=== PATIENT | female | born 1995 | race Hispanic/Latino ===

== ENCOUNTER 2018-09-15 23:41 | Emergency (ER) | payer SELFPAY ==
[2018-09-16 00:52] LABS: Absolute Lymphocytes (CBC) 2.8 K/uL (0.7-4.9); Absolute Monocytes 0.5 K/uL (0.1-1.3); Absolute Neutrophil 4.8 K/uL (1.8-8.0); Basophils % 0.3 % (0-1.3); Eosinophils % 1.1 % (0-4.4); MPV 9.5 fL (7.6-11.3); Monocytes % 5.9 % (3.3-12.3); RBC Red Blood Cell Count 4.24 M/uL (3.86-4.86)
[2018-09-16 00:58] LABS: ALT/SGPT 25 U/L (12-78); AST/SGOT 14 U/L (15-37); Albumin 3.6 g/dL (3.4-5.0); Alkaline Phosphatase 53 U/L (45-117); BUN Blood Urea Nitrogen 8 mg/dL (7-18); Bicarbonate 25 mmol/L (21-32); Bilirubin Direct < 0.1 mg/dL (0-0.2); Bilirubin Total 0.2 mg/dL (0.2-1.0); Glucose Level 102 mg/dL (74-106); Lipase 174 U/L (73-393); Potassium 3.3 mmol/L (3.5-5.1); Protein, Total 7.6 g/dL (6.4-8.2); Sodium Level 142 mmol/L (136-145)
[2018-09-16 01:02] LABS: Urine Blood NEGATIVE (NEG); Urine Glucose NEGATIVE (NEG); Urine Protein NEGATIVE (NEG); Urine pH 5.5 (5.0-7.0)
--- NOTE | 2018-09-16 02:49 | EDPHYS ---
Physician Documentation [facility] Name: Leni Camacho Age: 23 yrs Sex: Female : 1995 Arrival Date: 09/15/2018 Time: 23:42 Bed 20 Private MD: ED Physician Campbell Barragan HPI: 09/16 00:05 This 23 yrs old Female presents to ER via Ambulatory with complaints of jmm Abdominal Pain. 00:05 The patient presents with abdominal pain in the epigastric area, in the lower abdomen. jmm Onset: The symptoms/episode began/occurred gradually, 1 day(s) ago. This is a 23 year old female with a history of pcos that presents to the ED with complaints of epigastric pain beginning approx 1 day ago. Denies fever, denies vomiting, denies diarrhea, but complains of nausea. Patient states the pain has moved to her lower abdomen. Denies surgical history. . 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 - Social history:: Smoking status: Patient/guardian denies using tobacco. - Ebola Screening: : No symptoms or risks identified at this time. ROS: 09/16 00:05 Constitutional: Negative for fever, chills, and weight loss, Cardiovascular: Negative jmm for chest pain, palpitations, and edema, Respiratory: Negative for shortness of breath, cough, wheezing, and pleuritic chest pain. Abdomen/GI: Positive for abdominal pain, nausea. All other systems are negative. Exam: 00:05 Constitutional: This is a well developed, well nourished patient who is awake, alert, jmm and in no acute distress. Head/Face: atraumatic. Eyes: EOMI, no conjunctival erythema appreciated ENT: Moist Mucus Membranes Neck: Trachea midline, Supple Chest/axilla: Normal chest wall appearance and motion. Cardiovascular: Regular rate and rhythm. No edema appreciated Respiratory: Normal respirations, no respiratory distress appreciated 00:05 Abdomen/GI: Inspection: abdomen appears normal, Bowel sounds: normal, Palpation: soft, mild abdominal tenderness, in the epigastric area and right lower quadrant. 00:05 Back: ROM is normal. 00:05 Musculoskeletal/extremity: ROM: intact in all extremities. 00:05 Skin: Appearance: Color: normal in color. 00:05 Neuro: Orientation: is normal, Mentation: is normal, Memory: is normal. 00:05 Psych: Behavior/mood is pleasant, cooperative. Vital Signs: 00:01 BP 113 / 74; Pulse 99; Resp 18; Temp 98.1; Pulse Ox 99% ; Weight 63.5 kg; Height 5 ft. ea (152.40 cm); 00:59 BP 107 / 72; Pulse 90; Resp 18; Pulse Ox 99% on R/A; Pain 5/10; ed1 01:59 BP 103 / 64; Pulse 86; Resp 17; Pulse Ox 99% on R/A; Pain 5/10; ed1 03:00 BP 106 / 73; Pulse 82; Resp 19; Pulse Ox 100% on R/A; Pain 2/10; ed1 00:01 Body Mass Index 27.34 (63.50 kg, 152.40 cm) ea MDM: 00:05 Patient medically screened. [facility] 02:44 Data reviewed: vital signs, nurses notes. Counseling: I had a detailed discussion with sarthak the patient and/or guardian regarding: the historical points, exam findings, and any diagnostic results supporting the discharge/admit diagnosis, lab results, radiology results, the need for outpatient follow up, to return to the emergency department if symptoms worsen or persist or if there are any questions or concerns that arise at home. ED course: Patient is alert and non toxic in appearance in the ED. CT imaging consistent with ovarian cyst rupture. Patient states she currently takes clomid. I discussed with the patient the need to follow up with optical manufacturing technician for further evaluation. Patient is also given return precautions. . 09/16 00:06 Order name: Basic Metabolic Panel; Complete Time: 00:59 [facility] 09/16 00:06 Order name: CBC with Diff; Complete Time: 00:59 [facility] 09/16 00:06 Order name: Creatinine for Radiology; Complete Time: 00:59 [facility] 09/16 00:06 Order name: Hepatic Function; Complete Time: 00:59 [facility] 09/16 00:06 Order name: Lipase; Complete Time: 00:59 [facility] 09/16 00:35 Order name: Urine Dipstick--Ancillary (enter results); Complete Time: 01:[address] [facility] 09/16 00:06 Order name: IV Saline Lock; Complete Time: 00:21 [facility] 09/16 00:06 Order name: Labs collected and sent; Complete Time: 00:21 [facility] 09/16 00:06 Order name: Urine Dipstick-Ancillary (obtain specimen); Complete Time: 00:13 [facility] 09/16 00:08 Order name: CT Abd/Pelvis - W/Contrast [facility] 09/16 00:35 Order name: Urine --Ancillary (enter results); Complete Time: 01:[address] [facility] 09/16 00:06 Order name: Urine Test (obtain specimen); Complete Time: 00:13 [facility] Administered Medications: 02:52 Drug: morphine 2 mg Route: IVP; Site: right antecubital; ed1 03:01 Follow up: Response: No adverse reaction; Pain is decreased ed1 02:52 Drug: Zofran 4 mg Route: IVP; Site: right antecubital; ed1 03:01 Follow up: Response: No adverse reaction; Nausea is decreased ed1 02:52 Drug: Ketorolac 30 mg Route: IVP; Site: right antecubital; ed1 03:02 Follow up: Response: No adverse reaction; Pain is decreased ed1 Disposition: 04:05 Co-signature as Attending Physician, Campbell Barragan MD. rn Disposition: 09/16/18 02:49 Discharged to Home. Impression: Ruptured Ovarian Cyst, Epigastric pain. - Condition is Stable. - Discharge Instructions: Ovarian Cyst. - Prescriptions for Tylenol- Codeine #3 300-30 mg Oral Tablet - take 1 tablet by ORAL route every 6 hours As needed; 20 tablet. Pepcid 20 mg Oral Tablet - take 1 tablet by ORAL route every 12 hours for 10 days; 20 tablet. - Medication Reconciliation Form, Thank You Letter, Antibiotic Education, Prescription Opioid Use form. - Follow up: Private Physician; When: 2 - 3 days; Reason: Recheck today's complaints, Continuance of care, Re-evaluation by your physician. - Notes: Please follow up with Gastroenterology for further evaluation of your upper abdominal pain. Please return to the ED if you develop increased pain, fever, shortness of breath, or any other concerning symptoms. Signatures: Dispatcher [employer] EDMS Mark Levi PA PA [facility] Campbell Barragan MD MD rn Riggs, Erika, RN RN ed1 Daily Seaman RN RN ea Corrections: (The following items were deleted from the chart) 02:49 02:49 09/16/2018 02:49 Discharged to Home. Impression: Ruptured Ovarian Cyst. Condition [facility] is Stable. Forms are Medication Reconciliation Form, Thank You Letter, Antibiotic Education, Prescription Opioid Use. Follow up: Private Physician; When: 2 - 3 days; Reason: Recheck today's complaints, Continuance of care, Re-evaluation by your physician. [facility] 03:02 02:49 09/16/2018 02:49 Discharged to Home. Impression: Ruptured Ovarian Cyst; ed1 Epigastric pain. Condition is Stable. Discharge Instructions: Ovarian Cyst. Prescriptions for Tylenol-Codeine #3 300-30 mg Oral Tablet - take 1 tablet by ORAL route every 6 hours As needed; 20 tablet. and Forms are Medication Reconciliation Form, Thank You Letter, Antibiotic Education, Prescription Opioid Use. Follow up: Private Physician; When: 2 - 3 days; Reason: Recheck today's complaints, Continuance of care, Re-evaluation by your physician. [facility]
--- NOTE | 2018-09-16 02:49 | ER ---
Nurse's Notes [facility] Name: Leni Camacho Age: 23 yrs Sex: Female : 1995 Arrival Date: 09/15/2018 Time: 23:42 Bed 20 Private MD: Diagnosis: Ruptured Ovarian Cyst;Epigastric pain Presentation: 09/15 23:55 Presenting complaint: Patient states: Reports epigastric pain that started at around ea four AM yesterday morning, pt reports 2 episodes of diarrhea in the AM and has been feeling nauseous. Transition of care: patient was not received from another setting of care. Onset of symptoms was September 15, 2018. Risk Assessment: Do you want to hurt yourself or someone else? Patient reports no desire to harm self or others. Initial Sepsis Screen: Does the patient meet any 2 criteria? No. Patient's initial sepsis screen is negative. Does the patient have a suspected source of infection? No. Patient's initial sepsis screen is negative. Care prior to arrival: None. 23:55 Method Of Arrival: Ambulatory ea 23:55 Acuity: YON 3 ea Triage Assessment: 09/16 00:00 General: Appears in no apparent distress. Behavior is calm, cooperative, appropriate ea for age. Pain: Complains of pain in epigastric area. Neuro: Level of Consciousness is awake, alert, obeys commands, Oriented to person, place, time, situation. Cardiovascular: Patient's skin is warm and dry. Respiratory: Airway is patent Respiratory effort is even, unlabored, Respiratory pattern is regular, symmetrical. GI: Abdomen is non-distended, Reports nausea. GI: Reports cramping. : Denies burning with urination. Derm: Skin is pink, warm \T\ dry. 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 - Social history:: Smoking status: Patient/guardian denies using tobacco. - Ebola Screening: : No symptoms or risks identified at this time. Screenin:57 Abuse screen: Denies threats or abuse. Nutritional screening: No deficits noted. ea Tuberculosis screening: No symptoms or risk factors identified. Fall Risk None identified. Assessment: 09/16 00:21 General: Appears in no apparent distress. Behavior is calm, cooperative. Pain: ed1 Complains of pain in epigastric area and right upper quadrant Pain does not radiate. Pain currently is 5 out of 10 on a pain scale. Quality of pain is described as aching, Pain began 1 day ago. Is continuous. Neuro: Level of Consciousness is awake, alert, obeys commands, Oriented to person, place, time, situation. Cardiovascular: Denies chest pain, Heart tones S1 S2 present. Respiratory: Airway is patent Respiratory effort is even, unlabored, Respiratory pattern is regular, symmetrical, Breath sounds are clear bilaterally. GI: Abdomen is non-distended, Bowel sounds present X 4 quads. Abd is soft X 4 quads Abdomen is tender to palpation in epigastric area and right upper quadrant Reports diarrhea, nausea, Patient currently denies vomiting. : No signs and/or symptoms were reported regarding the genitourinary system. EENT: No signs and/or symptoms were reported regarding the EENT system. Derm: Skin is intact, is healthy with good turgor, Skin is dry, Skin is normal, Skin temperature is warm. Musculoskeletal: Circulation, motion, and sensation intact. Range of motion: intact in all extremities. 00:59 Reassessment: Patient appears in no apparent distress at this time. No changes from ed1 previously documented assessment. Patient and/or family updated on plan of care and expected duration. Pain level reassessed. Patient is alert, oriented x 3, equal unlabored respirations, skin warm/dry/pink. Patient states symptoms have not improved. 01:59 Reassessment: Patient appears in no apparent distress at this time. No changes from ed1 previously documented assessment. Patient and/or family updated on plan of care and expected duration. Pain level reassessed. Patient is alert, oriented x 3, equal unlabored respirations, skin warm/dry/pink. Patient states symptoms have not improved. 03:00 Reassessment: Patient appears in no apparent distress at this time. Patient and/or ed1 family updated on plan of care and expected duration. Pain level reassessed. Patient is alert, oriented x 3, equal unlabored respirations, skin warm/dry/pink. Patient states feeling better. Patient states symptoms have improved. Vital Signs: 00:01 BP 113 / 74; Pulse 99; Resp 18; Temp 98.1; Pulse Ox 99% ; Weight 63.5 kg; Height 5 ft. ea (152.40 cm); 00:59 BP 107 / 72; Pulse 90; Resp 18; Pulse Ox 99% on R/A; Pain 5/10; ed1 01:59 BP 103 / 64; Pulse 86; Resp 17; Pulse Ox 99% on R/A; Pain 5/10; ed1 03:00 BP 106 / 73; Pulse 82; Resp 19; Pulse Ox 100% on R/A; Pain 2/10; ed1 00:01 Body Mass Index 27.34 (63.50 kg, 152.40 cm) ea ED Course: 09/15 23:42 Patient arrived in ED. am2 23:48 Mark Levi PA is PHCP. [facility] 23:48 Campbell Barragan MD is Attending Physician. [facility] 23:56 Triage completed. ea 23:56 Patient has correct armband on for positive identification. Bed in low position. Call ea light in reach. Side rails up X2. 23:57 Arm band placed on right wrist. Patient placed in an exam room, on a stretcher, on ea pulse oximetry. 09/16 00:10 Maura Godinez, RN is Primary Nurse. ed1 00:21 Initial lab(s) drawn, by fl, sent to lab. Inserted saline lock: 22 gauge in right ed1 antecubital area, using aseptic technique. Blood collected. 00:[address] Scan. ed1 01:54 CT Abd/Pelvis - W/Contrast In Process Unspecified. EDMS 02:20 Resting quietly. Awaiting radiology results. ed1 03:00 No provider procedures requiring assistance completed. IV discontinued, intact, ed1 bleeding controlled, No redness/swelling at site. Pressure dressing applied. Administered Medications: 02:52 Drug: morphine 2 mg Route: IVP; Site: right antecubital; ed1 03:01 Follow up: Response: No adverse reaction; Pain is decreased ed1 02:52 Drug: Zofran 4 mg Route: IVP; Site: right antecubital; ed1 03:01 Follow up: Response: No adverse reaction; Nausea is decreased ed1 02:52 Drug: Ketorolac 30 mg Route: IVP; Site: right antecubital; ed1 03:02 Follow up: Response: No adverse reaction; Pain is decreased ed1 Outcome: 02:49 Discharge ordered by MD. de león 03:00 Discharged to home ambulatory, with significant other. ed1 03:00 Condition: good 03:00 Discharge instructions given to patient, Instructed on discharge instructions, follow up and referral plans. medication usage, Demonstrated understanding of instructions, follow-up care, medications, Prescriptions given X 2. 03:02 Patient left the ED. ed1 Signatures: Dispatcher [employer] EDMS Mark Levi PA PA jmm Riggs, Erika, RN RN ed1 Latasha Arreaga am2 Daily Seaman, RN RN ea
[2018-09-16] MEDS ORDERED: MORPHINE 2 MG/ML SYR ONE (02:59)
[2018-09-16] MEDS ORDERED: ONDANSETRON 4 MG/2 ML VIAL ONE (02:59)
[2018-09-16] MEDS ORDERED: KETOROLAC 30 MG/ML INJ ONE (02:59)
--- NOTE | 2018-09-16 13:17 | RAD REPORT ---
EXAM DESCRIPTION: CT Abdomen and Pelvis With Contrast: CLINICAL HISTORY: Abdominal pain. COMPARISON: None. TECHNIQUE: Contiguous axial sections are obtained through the abdomen and pelvis as per protocol aft er administration of iodinated contrast. Oral contrast was not administered. . Sagittal and coronal r eformations were obtained. Automatic exposure control (AEC), mA and/or kV adjustment by patient size, and/or iterative reconst ructive technique was used, per departmental dose optimization program, during the performance of the CT examination. FINDINGS: The radio division officer view demonstrates no abnormalities. The visualized lung bases demonstrates no abnormalities. The liver is normal in size and demonstrates normal attenuation and enhancement. The spleen, pancre as, adrenal glands appear normal in size and attenuation without any focal abnormalities. The gallbla dder is normal. Kidneys demonstrate no evidence of calculi. Kidneys are normal in size, shape, attenuation and enhanc ement. The aorta, IVC and retroperitoneal structures appear normal . The stomach appearsunremarkable . The small bowel loops appear unremarkable. The appendix is normal . The colon isunremarkable. Moderate amount of free fluid is seen in the pelvis most consistent with a ruptured ovarian cyst. CT examination of the pelvis demonstrates no evidence of mass or adenopathy. The urinary bladder appe ars normal. The uterus is anteverted and normal in size. Slightly distended endometrial cavity is noted in the re gion of the fundus. Presence of a left ovarian follicle measuring 2.1 cm in size is noted. Inguinal regions are unremarkable. Bony structures are unremarkable. IMPRESSION: Presence of free fluid in the pelvis most suggestive of a ruptured ovarian cyst. Distend ed endometrial canal versus endometrial thickening in the region of the fundus. Electronically signed by: Gina Corbin MD 09/16/2018 2:02 AM CDT Due to temporary technical issues with the PACS/Fluency reporting system, reports are being signed by the in house radiologist as a courtesy to ensure prompt reporting. The interpreting radiologist is f ully responsible for the content of the report.
== END 2018-09-16 03:02 | disposition home or self-care (01) ==
LOC: ER 23:41
DX: N83.299 Other ovarian cyst, unspecified side (principal); E28.2 Polycystic ovarian syndrome
CPT/HCPCS: 36415; 74177; 80048; 80076; 81003; 81025; 83690; 85025; 96374; 96375; 99284; J2270; J2405; Q9967

== ENCOUNTER 2019-02-02 14:54 | Emergency (ER) | payer SELFPAY ==
[2019-02-02 16:06] LABS: Urine Blood 1+ (NEG); Urine Glucose NEGATIVE (NEG); Urine Protein 1+ (NEG); Urine Specific Gravity 1.025 (1.005-1.030)
[2019-02-02 16:23] LABS: Urine Bacteria >50 /HPF (<20); Urine Culture Reflex Order NOT NEEDED
[2019-02-02] MEDS ORDERED: NA CHLORIDE 0.9% 1,000 ML ONE (16:26)
[2019-02-02 16:53] LABS: Absolute Lymphocytes (CBC) 1.2 K/uL (0.7-4.9); Basophils % 0.6 % (0-1.3); Hematocrit 37.5 % (36.0-45.0); MPV 9.4 fL (7.6-11.3); RBC Red Blood Cell Count 4.33 M/uL (3.86-4.86)
[2019-02-02] MEDS ORDERED: CEFTRIAXONE/SWI 1gm 1 GM/10 ML SYR ONE (17:09)
[2019-02-02 17:10] LABS: BUN Blood Urea Nitrogen 7 mg/dL (7-18); Bicarbonate 24 mmol/L (21-32); Glucose Level 87 mg/dL (74-106); HCG, Quantitative 712 mIU/mL (1-3); Potassium 3.4 mmol/L (3.5-5.1); Sodium Level 139 mmol/L (136-145)
--- NOTE | 2019-02-02 17:44 | ER ---
Nurse's Notes [facility] Name: Leni Camacho Age: 23 yrs Sex: Female : 1995 Arrival Date: 02/02/2019 Time: 14:59 Bed 13 Private MD: Vaughn Mckeon B Diagnosis: Unspecified ovarian cysts; state;Urinary tract infection, site not specified Presentation: 02/02 15:24 Presenting complaint: Patient states: LMP-12/27/18; i have been getting on and off fever, T max- 100.5; denies couth, reports abd cramps but denies bleeding;. Transition of care: patient was not received from another setting of care. Onset of symptoms was February 02, 2019. Risk Assessment: Do you want to hurt yourself or someone else? Patient reports no desire to harm self or others. Initial Sepsis Screen: Does the patient meet any 2 criteria? No. Patient's initial sepsis screen is negative. Does the patient have a suspected source of infection? No. Patient's initial sepsis screen is negative. Care prior to arrival: None. 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 - Social history:: Smoking status: Patient/guardian denies using tobacco. - Ebola Screening: : No symptoms or risks identified at this time. Screenin:48 Abuse screen: Denies threats or abuse. Denies injuries from another. Nutritional ph screening: No deficits noted. Tuberculosis screening: No symptoms or risk factors identified. Fall Risk None identified. Assessment: 16:47 General: Appears in no apparent distress. comfortable, slender, well groomed, Behavior ph is calm, cooperative, appropriate for age, Reports chills for fever for 1-2 days. Pain: Complains of pain in suprapubic area. Neuro: Level of Consciousness is awake, alert, obeys commands, Oriented to person, place, time, situation. Cardiovascular: Capillary refill < 3 seconds in bilateral fingers Patient's skin is warm and dry. Respiratory: Airway is patent Respiratory effort is even, unlabored, Respiratory pattern is regular, symmetrical. GI: Abdomen is flat, non-distended, Bowel sounds present X 4 quads. Patient currently denies diarrhea, nausea, vomiting. : Reports pain in suprapubic area urinary frequency. Derm: Skin is intact, Skin is pink, warm \T\ dry. Musculoskeletal: Circulation, motion, and sensation intact. Range of motion: intact in all extremities. 18:11 Reassessment: Patient appears in no apparent distress at this time. Patient and/or ph family updated on plan of care and expected duration. Pain level reassessed. Patient is alert, oriented x 3, equal unlabored respirations, skin warm/dry/pink. Pt d/c home w/ SO. Vital Signs: 15:26 BP 115 / 70; Pulse 98; Resp 18; Temp 98.4; Pulse Ox 100% on R/A; Weight 59.87 kg; hj Height 5 ft. 0 in. (152.40 cm); Pain 0/10; 16:49 BP 114 / 79; Pulse 95; Resp 18; Pulse Ox 100% on R/A; ph 17:56 BP 108 / 78; Pulse 94; Resp 18; Temp 98.1; Pulse Ox 99% on R/A; ph 15:26 Body Mass Index 25.78 (59.87 kg, 152.40 cm) ED Course: 14:59 Patient arrived in ED. ag5 15:00 Vaughn Mckeon MD is Private Physician. ag5 15:25 Triage completed. hj 15:26 Arm band placed on left wrist. hj 15:41 So Champagne FNP-C is [facility]. snw 15:42 Campbell Barragan MD is Attending Physician. snw 16:01 Jocelyne Jimenez, MARGY is Primary Nurse. ph 16:48 Patient has correct armband on for positive identification. Bed in low position. Call ph light in reach. Side rails up X 1. Pulse ox on. NIBP on. Door closed. Noise minimized. Warm blanket given. Head of bed elevated. 16:48 No provider procedures requiring assistance completed. Inserted saline lock: 20 gauge ph in right antecubital area, using aseptic technique. 17:43 Vaughn Mckeon MD is Referral Physician. snw 18:11 US Transvaginal Ob In Process Unspecified. EDMS 18:12 IV discontinued, intact, bleeding controlled, No redness/swelling at site. Pressure ph dressing applied. Administered Medications: 16:46 Drug: NS 0.9% 1000 ml Route: IV; Rate: 1 bolus; Site: right antecubital; ph 18:00 Follow up: Response: No adverse reaction; IV Status: Completed infusion; IV Intake: ph 1000ml 17:50 Drug: Rocephin 1 grams Route: IV; Rate: calculated rate; Site: right antecubital; ph 18:00 Follow up: Response: No adverse reaction; IV Status: Completed infusion ph Intake: 18:00 IV: 1000ml; Total: 1000ml. ph Outcome: 17:44 Discharge ordered by . snw 18:11 Discharged to home ambulatory, with significant other. ph 18:11 Condition: good 18:11 Discharge instructions given to patient, Instructed on discharge instructions, follow up and referral plans. medication usage, Demonstrated understanding of instructions, follow-up care, medications, Prescriptions given X 1. 18:12 Patient left the ED. ph Signatures: Dispatcher [employer] EDMS So Champagne, TAPE SEWER-C TAPE SEWER-Csnw Jocelyne Jimenez RN RN Rickey Grimaldo, MARGY RN Silvana Ward ag5 Corrections: (The following items were deleted from the chart) 15:28 15:26 Pulse 98bpm; Resp 18bpm; Pulse Ox 100% RA; Temp 98.4F; 59.87 kg; Height 5 ft. 0 hj in.; BMI: 25.7; Pain 0/10; hj
--- NOTE | 2019-02-02 17:45 | EDPHYS ---
Physician Documentation [facility] [place] Name: Leni Camacho Age: 23 yrs Sex: Female : 1995 Arrival Date: 02/02/2019 Time: 14:59 Bed 13 Private MD: Vaughn Mckeon B ED Physician Campbell Barragan HPI: 02/02 16:49 This 23 yrs old Female presents to ER via Ambulatory with complaints of Fever, snw 5 Weeks Preg. 16:49 The patient reports fever, that was measured at 101 degrees Fahrenheit. Onset: The snw symptoms/episode began/occurred suddenly, 1 day(s) ago, and became persistent. Associated signs and symptoms: Pertinent positives: abd cramping. Severity of symptoms: At their worst the symptoms were mild. The patient has not experienced similar symptoms in the past. saw Dr. Mckeon x 1. 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 - Social history:: Smoking status: Patient/guardian denies using tobacco. - Ebola Screening: : No symptoms or risks identified at this time. ROS: 16:48 Constitutional: Negative for chills and weight loss, + fever up to 101 Eyes: Negative snw for injury, pain, redness, and discharge, ENT: Negative for injury, pain, and discharge, Neck: Negative for injury, pain, and swelling, Cardiovascular: Negative for chest pain, palpitations, and edema, Respiratory: Negative for shortness of breath, cough, wheezing, and pleuritic chest pain, Back: Negative for injury and pain, : Negative for injury, bleeding, discharge, and swelling, MS/Extremity: Negative for injury and deformity, Skin: Negative for injury, rash, and discoloration, Neuro: Negative for headache, weakness, numbness, tingling, and seizure. 16:48 Abdomen/GI: Positive for abdominal cramps, of the suprapubic area and right lower quadrant. Exam: 16:46 Head/Face: Normocephalic, atraumatic. Eyes: Pupils equal round and reactive to light, snw extra-ocular motions intact. Lids and lashes normal. Conjunctiva and sclera are non-icteric and not injected. Cornea within normal limits. Periorbital areas with no swelling, redness, or edema. ENT: Nares patent. No nasal discharge, no septal abnormalities noted. Tympanic membranes are normal and external auditory canals are clear. Oropharynx with no redness, swelling, or masses, exudates, or evidence of obstruction, uvula midline. Mucous membranes moist. Neck: Trachea midline, no thyromegaly or masses palpated, and no cervical lymphadenopathy. Supple, full range of motion without nuchal rigidity, or vertebral point tenderness. No Meningismus. Chest/axilla: Normal chest wall appearance and motion. Nontender with no deformity. No lesions are appreciated. Cardiovascular: Regular rate and rhythm with a normal S1 and S2. No gallops, murmurs, or rubs. Normal PMI, no JVD. No pulse deficits. Respiratory: Lungs have equal breath sounds bilaterally, clear to auscultation and percussion. No rales, rhonchi or wheezes noted. No increased work of breathing, no retractions or nasal flaring. Back: No spinal tenderness. No costovertebral tenderness. Full range of motion. Skin: Warm, dry with normal turgor. Normal color with no rashes, no lesions, and no evidence of cellulitis. MS/ Extremity: Pulses equal, no cyanosis. Neurovascular intact. Full, normal range of motion. Neuro: Awake and alert, GCS 15, oriented to person, place, time, and situation. Cranial nerves II-XII grossly intact. Motor strength 5/5 in all extremities. Sensory grossly intact. Cerebellar exam normal. Normal gait. 16:46 Constitutional: The patient appears alert, awake, pale. 16:46 Abdomen/GI: Inspection: abdomen appears normal, Bowel sounds: normal, Palpation: mild abdominal tenderness, in the right lower quadrant. Vital Signs: 15:26 BP 115 / 70; Pulse 98; Resp 18; Temp 98.4; Pulse Ox 100% on R/A; Weight 59.87 kg; hj Height 5 ft. 0 in. (152.40 cm); Pain 0/10; 16:49 BP 114 / 79; Pulse 95; Resp 18; Pulse Ox 100% on R/A; ph 17:56 BP 108 / 78; Pulse 94; Resp 18; Temp 98.1; Pulse Ox 99% on R/A; ph 15:26 Body Mass Index 25.78 (59.87 kg, 152.40 cm) hj MDM: 15:43 Patient medically screened. zachery 16:50 Data reviewed: vital signs, nurses notes. Data interpreted: Pulse oximetry: on room air snw is 100 %. Interpretation: normal. Counseling: I had a detailed discussion with the patient and/or guardian regarding: the historical points, exam findings, and any diagnostic results supporting the discharge/admit diagnosis, lab results. Special discussion: , LMP 12/26/18. 02/02 15:13 Order name: Urine Culture snw 02/02 15:13 Order name: Urine Microscopic Only; Complete Time: 16:27 snw 02/02 16:03 Order name: Urine Dipstick--Ancillary (enter results); Complete Time: 16:13 bd 02/02 16:03 Order name: Urine --Ancillary (enter results); Complete Time: 16:13 bd 02/02 16:14 Order name: Quantitative Hcg; Complete Time: 17:13 snw 02/02 16:14 Order name: Abo/rh Typing; Complete Time: 17:55 snw 02/02 15:13 Order name: Urine Test (obtain specimen); Complete Time: 16:12 snw 02/02 15:13 Order name: Urine Dipstick-Ancillary (obtain specimen); Complete Time: 16:12 snw 02/02 16:14 Order name: Basic Metabolic Panel; Complete Time: 17:13 snw 02/02 16:14 Order name: CBC with Diff; Complete Time: 16:59 snw 02/02 16:14 Order name: IV Saline Lock; Complete Time: 16:46 snw 02/02 16:50 Order name: US Transvaginal Ob snw 02/02 16:14 Order name: Labs collected and sent; Complete Time: 16:46 snw 02/02 16:14 Order name: NPO; Complete Time: 16:46 snw Administered Medications: 16:46 Drug: NS 0.9% 1000 ml Route: IV; Rate: 1 bolus; Site: right antecubital; ph 18:00 Follow up: Response: No adverse reaction; IV Status: Completed infusion; IV Intake: ph 1000ml 17:50 Drug: Rocephin 1 grams Route: IV; Rate: calculated rate; Site: right antecubital; ph 18:00 Follow up: Response: No adverse reaction; IV Status: Completed infusion ph Disposition: 02/03 07:24 Co-signature as Attending Physician, Campbell Barragan MD. rn Disposition: 02/02/19 17:44 Discharged to Home. Impression: Unspecified ovarian cysts, state, Urinary tract infection, site not specified. - Condition is Stable. - Discharge Instructions: Ovarian Cyst, Fbct-ed-[id number], First Trimester of , and Urinary Tract Infection. - Prescriptions for Macrobid 100 mg Oral Capsule - take 1 capsule by ORAL route every 12 hours for 10 days; 20 capsule. - Medication Reconciliation Form, Thank You Letter, Antibiotic Education, Prescription Opioid Use, Family Work Release form. - Follow up: Vaughn Mckeon MD; When: 1 week; Reason: Recheck today's complaints, Continuance of care, Re-evaluation by your physician. Follow up: Emergency Department; When: As needed; Reason: Worsening of condition. Signatures: Dispatcher [employer] EDColton Pedroza MD MD cha Therrien, Shelly, PROCUREMENT BUYER-C PROCUREMENT BUYER-Csnw Campbell Barragan MD MD rn Hall, Patricia, RN RN Rickey Grimaldo RN RN Corrections: (The following items were deleted from the chart) 02/02 18:12 17:44 02/02/2019 17:44 Discharged to Home. Impression: Unspecified ovarian cysts; ph state; Urinary tract infection, site not specified. Condition is Stable. Forms are Medication Reconciliation Form, Thank You Letter, Antibiotic Education, Prescription Opioid Use. Follow up: Vaughn Mckeon; When: 1 week; Reason: Recheck today's complaints, Continuance of care, Re-evaluation by your physician. Follow up: Emergency Department; When: As needed; Reason: Worsening of condition. snw
--- NOTE | 2019-02-02 20:38 | RAD REPORT ---
EXAM DESCRIPTION: US - Transvaginal OB - 02/02/2019 6:08 pm CLINICAL HISTORY: Abdominal cramping, COMPARISON: None. FINDINGS: Approximately 3.2 centimeter complex right ovarian cyst present. This is most likely a hem orrhagic cyst. Ectopic is not suspected no left ovarian abnormality seen. A 12 millimeter thick endometrial stripe is present. No gestational sac or sac remnant identifiable. No mass, polyp, hematoma or other endometrial abnormality. Uterus is normal size. No myometrial mass. IMPRESSION: No intrauterine gestational sac or sac remnant. Endometrial stripe is thickened 12 mm. Complex 3 centimeter right ovarian cyst. Ectopic is not suspected
== END 2019-02-02 18:12 | disposition home or self-care (01) ==
LOC: ER 14:54
DX: O34.81 Maternal care for other abnormalities of pelvic organs, first trimester (principal); N83.201 Unspecified ovarian cyst, right side; O23.41 Unspecified infection of urinary tract in pregnancy, first trimester; O99.281 Endocrine, nutritional and metabolic diseases complicating pregnancy, first trimester; E28.2 Polycystic ovarian syndrome; Z3A.01 Less than 8 weeks gestation of pregnancy
CPT/HCPCS: 36415; 76817; 80048; 81003; 81015; 81025; 84702; 85025; 86900; 86901; 87086; 87088; 96361; 96374; 99284; J0696; J7030

== ENCOUNTER 2019-09-28 01:46 | Inpatient (IN) | payer SELFPAY ==
[2019-09-28] MEDS ORDERED: CARBOPROST TROME 250 MCG/ML IM PRN (03:25)
[2019-09-28] MEDS ORDERED: BUTORPHANOL 1 MG/ML INJ IV PRN (03:25)
[2019-09-28] MEDS ORDERED: PROMETHAZINE INJ 25 MG/ML AMP IM PRN (03:25)
[2019-09-28] MEDS ORDERED: Ringers Lactate 1,000 ML IV PRN (03:25)
[2019-09-28] MEDS ORDERED: METHYLERGONOVINE 0.2MG/ML AMP IM PRN (03:25)
[2019-09-28] MEDS ORDERED: PENICILLIN 5 MU in NA CHLORIDE 0.9% 100 ML IV ONE (03:30)
[2019-09-28] MEDS ORDERED: OXYTOCIN/LR 20 UNIT/1,000 ML BAG IV SCH ×2 (04:00→18:00)
[2019-09-28] MEDS ORDERED: Ringers Lactate 1,000 ML IV SCH (04:00)
[2019-09-28 05:00] LABS: Urine Appearance CLOUDY; Urine Bilirubin NEGATIVE (NEG); Urine Blood NEGATIVE (NEG); Urine Color YELLOW; Urine Glucose NEGATIVE (NEG); Urine Protein NEGATIVE (NEG); Urine Specific Gravity >=1.030 (1.005-1.030); Urine Urobilinogen 0.2 mg/dL (0.2-1.0)
[2019-09-28] MEDS ORDERED: PENICILLIN 2.5 MU in NA CHLORIDE 0.9% 100 ML IV SCH (05:00)
[2019-09-28 05:05] VITALS: BMI 32.2
[2019-09-28 05:11] LABS: Absolute Lymphocytes (CBC) 1.8 K/uL (0.7-4.9); Basophils % 0.3 % (0-1.3); Hematocrit 31.9 % (36.0-45.0); Lymphocytes % 22.5 % (15.3-44.8); RBC Red Blood Cell Count 3.82 M/uL (3.86-4.86)
[2019-09-28 05:34] LABS: Urine Bacteria 20-50 /HPF (<20); Urine Culture Reflex Order REFLEXED; Urine RBC <5 /HPF (NONE SEEN); Urine Urothelial Cells <5 /HPF (NONE SEEN)
--- NOTE | 2019-09-28 07:52 | PREOPHP ---
Date of Admission: 09/28/2019 Leni Camacho, a 24-year-old, primigravida, 39 weeks by best estimates, could be 39 weeks and 3 or 4 days, but definitely not pass the due date. Rh positive, immune to Rubella. Positive beta s trep screen. Has already received one dose of penicillin. Baby looks excellent today. She is contr acting regularly, but is not uncomfortable at this point. Rupture of membranes, light to medium meco nium, no particulate matter. She is 3.5 cm, 60% to 70% effaced, vertex, -1 station. Anticipate more rapid progress. Discussion about meconium and strep. Anticipate delivery sometime later today. NAYA/MO Voice ID: [id number]
--- NOTE | 2019-09-28 08:29 | RAD REPORT ---
EXAM DESCRIPTION: RAD - Abdomen Single View - 09/28/2019 5:55 am CLINICAL HISTORY: presentation Pain COMPARISON: Abdomen Pelvis W Contrast dated 09/16/2018 FINDINGS: presentation is cephalic with head engaged in the pelvic inlet. spine is to th e maternal left.
[2019-09-28] MEDS ORDERED: LIDOCAINE 1% MPF 30 ML VIAL ONE ×2 (08:48→17:31)
[2019-09-28] MEDS ORDERED: Ringers Lactate 1,000 ML IV ONE (09:02)
[2019-09-28] MEDS ORDERED: ROPIVACAINE HCL 0.2% 20ML AMP IV ONE (09:42)
[2019-09-28] MEDS ORDERED: ROPIVACAINE HCL 100 ML IV ONE (09:42)
[2019-09-28] MEDS ORDERED: FENTANYL CITR 100 MCG/2 ML IV ONE (09:55)
--- NOTE | 2019-09-28 11:50 | PN ---
Patient has progressed to about 4.5 cm. She is still somewhat posterior, 70% effaced. Slight edema on the right side of the cervix, but nothing significant at this point. Baby looks good. At her req uest, epidural anesthesia has been established. She not even feels any of her contractions at all. Later if we need to cut back on the maintenance dose, we will, but right now, we will leave it the wa y it is. Full discussion with the patient about what will be needed when she begins to push, but elise s not until later this afternoon. NAYA/MO Voice ID: [id number] Report ID: [id number]
--- NOTE | 2019-09-28 16:20 | PN ---
Patient is completely dilated. The baby is at +1 station. She is really not able to coordinate at t his point. Says she feels a little pressure when she is having contraction but nothing much really. She was just given supplemental dose of the epidural. We turned down the maintenance from 10 to 8. I think if patient can learn to push effectively, we will probably get the baby out fairly quickly b ut right now, she just really cannot feel enough pressure to be able to coordinate her pushes. NAYA/MO Voice ID: [id number] Report ID: [id number]
[2019-09-28] MEDS ORDERED: BUTORPHANOL 1 MG/ML INJ ONE (17:46)
[2019-09-28] MEDS ORDERED: ACETAMINOPHEN 500 MG TAB PO PRN (17:50)
[2019-09-28] MEDS ORDERED: DOCUSATE NA/SENNA CONC 1 TAB PO PRN (17:50)
[2019-09-28] MEDS ORDERED: BISACODYL 10 MG RECTAL SUPP RECT PRN (17:50)
[2019-09-28] MEDS ORDERED: Oxycodone HCl/Acetaminophen 1 TAB TAB PO PRN ×2 (17:50)
[2019-09-28] MEDS ORDERED: DIPHENHYDRAMINE 25 MG TAB/CAP PO PRN (17:50)
[2019-09-28] MEDS ORDERED: BUTORPHANOL 1 MG/ML INJ IV ONE (19:00)
[2019-09-29 00:09] LABS: RPR (Rapid Plasma Reagin) NON-REACT (NON-REACT)
--- NOTE | 2019-09-29 08:27 | DS ---
Hospital Course: Leni Cummings, 24-year-old primigravida, 39 weeks, possibly 39 weeks and 3 to 4 d ays. Delivered a 7 pounds, 10 ounces female, Apgars 8 and 9. Three small first-degree lacerations, all repaired with 2-0 chromic. Schultze delivery of the placenta, which was inspected and noted be i ntact and normal. 350 mL blood loss. Had epidural anesthesia during the labor, and local infiltrati on for supplementation during laceration repair. Positive beta strep screen. Received at least 3 do ses of penicillin during the labor, possibly more. ; afebrile, ambulating and voiding. Lo brenden is normal. No post epidural problems. Patient states that she does really not have any discomf ort in her perineum. Mild cramping, taken Motrin, says that is all she needs. Does not wish any benedict lgesics on dismissal. Full dismissal instructions. She will call the office for an appointment in 6 weeks to report any temperature elevation of 100 degrees, severe pain, heavy bleeding, or any other type of abnormalities. She will get her Tdap shot before she leaves the hospital. Had light to medi um meconium, no suspicion of meconium aspiration. Final Diagnoses: Term intrauterine at 39 weeks or more. Vaginal delivery. Epidural anest hesia. Penicillin prophylaxis. NAYA/MO Voice ID: [id number] Report ID: [id number]
--- NOTE | 2019-09-29 08:27 | OP ---
Surgeon: MD Leni Haile 24-year-old primigravida, 39 weeks, followed antepartum without complications. Rh po sitive, immune to Rubella. Positive beta strep screen. Admitted for labor induction, 3.5 cm on admi ssion. Rupture of membranes, light to medium meconium, no particulate matter. Baby looked good thro ughout the labor. At approximately 4.5 to 5 cm, requested epidural anesthesia. This however made th e patient so numb she could not feel anything and gradually was reduced as she progressed during her labor. Second stage of about 25 minutes, spontaneous vaginal delivery of a 7 pounds, 10 ounce female , Apgars 8 and 9. No suspicion of meconium aspiration. Thorough suctioning of nares and oropharynx prior to delivery. 3 small first-degree lacerations involving the right labia minora. The left side of the introitus, and just below the labial laceration on the left all sutured under local infiltrat ion with 2-0 chromic multiple stitches, Schultze delivery of the placenta, which was inspected and no aida be intact and normal. Estimated blood loss 350 mL. Patient tolerated all procedures well. She was given 1 mg of Stadol during the repair process. Final Diagnoses: Term intrauterine 39 weeks. Labor induction. Vaginal delivery. Epidura l anesthesia. Meconium. No suspicion of aspiration. NBC/MODL Voice ID: [id number] Report ID: [id number]
[2019-09-29] MEDS: IBUPROFEN 600 MG TAB PO PRN ×2 (09:50)
[2019-09-29] MEDS ORDERED: Tdap (Diph,Pertuss(Acell),Tet Vac) 0.5 ML SYR IMVAC ONE (15:57)
[2019-09-29 20:13] VITALS: BP 121/78; TEMP 98
[2019-10-01 04:19] LABS: HBsAG Nonreactive (Nonreactive)
== END 2019-09-29 21:05 | disposition home or self-care (01) | DRG 807 ==
LOC: 2ND-WC 04:27
PROVIDERS: ADMIT Specialist; ATTEND Specialist
PROC: 10E0XZZ Delivery of Products of Conception, External Approach (ICD-10-PCS; principal; 2019-09-28)
PROC: 0UQMXZZ Repair Vulva, External Approach (ICD-10-PCS; 2019-09-28)
PROC: 0UQGXZZ Repair Vagina, External Approach (ICD-10-PCS; 2019-09-28)
PROC: 10907ZC Drainage of Amniotic Fluid, Therapeutic from Products of Conception, Via Natural or Artificial Opening (ICD-10-PCS; 2019-09-28)
DX: O70.0 First degree perineal laceration during delivery (principal); Z37.0 Single live birth; O99.824 Streptococcus B carrier state complicating childbirth; Z3A.39 39 weeks gestation of pregnancy; Z23 Encounter for immunization
CPT/HCPCS: 36415; 74018; 81001; 85025; 86592; 86850; 86900; 86901; 87086; 87088; 87340; 90471; 90715; J0595; J2210; J2550; J2590; J2795; J3010; J7120